=== PATIENT | female | born 1955 | race Caucasian/White ===

== ENCOUNTER → 2018-11-29 | Outpatient (CLI) | payer BC ==
[~2018-11-29] MED LIST: ADULT LOW DOSE81 MG PO; AMBIEN 10 MG TA10 MG PO; ASPIRIN325 PO; COZAAR 50 MG TA50 M1 PO; ENOXAPARIN30 MG/0.3 SUBQ; EPIPEN0.3 MG/0.3 IM; HYDROCODONE-AP1 EA10 PO; LYRICA100 MG PO; MOBIC7.5 MG PO; NORCO 5-325 TA1 EACH PO; NUCYNTA100 MG PO; NUCYNTA50 MG PO; PRILOSEC 20 MG20 MG PO; PRILOSEC40 MG PO; ST. JOHN'S WOR150 MG PO; SULINDAC 200MG200 M1 PO; ZETIA10 MG PO; [UNRECOGNIZED DRUG - OTHER] OP
== END ==
LOC: M.RAD 13:32
DX: M43.12 Spondylolisthesis, cervical region (principal); M50.33 Other cervical disc degeneration, cervicothoracic region

== ENCOUNTER → 2018-12-10 | Outpatient (CLI) | payer BC | LOC: M.MRI 08:05 | DX: M47.892 Other spondylosis, cervical region (principal); M48.02 Spinal stenosis, cervical region; M25.78 Osteophyte, vertebrae; M50.23 Other cervical disc displacement, cervicothoracic region ==

== ENCOUNTER → 2019-05-31 | Outpatient (CLI) | payer BC | LOC: M.NUC 05-25 16:55 | DX: M41.86 Other forms of scoliosis, lumbar region (principal); M12.88 Other specific arthropathies, not elsewhere classified, other specified site; M25.561 Pain in right knee; Z96.651 Presence of right artificial knee joint ==

== ENCOUNTER → 2019-06-06 | Outpatient (CLI) | payer BC | LOC: M.CT 09:04 | DX: I25.10 Atherosclerotic heart disease of native coronary artery without angina pectoris (principal); M47.812 Spondylosis without myelopathy or radiculopathy, cervical region; M47.814 Spondylosis without myelopathy or radiculopathy, thoracic region; I11.9 Hypertensive heart disease without heart failure; K44.9 Diaphragmatic hernia without obstruction or gangrene; K80.20 Calculus of gallbladder without cholecystitis without obstruction; Z88.8 Allergy status to other drugs, medicaments and biological substances; Z88.1 Allergy status to other antibiotic agents; Z91.013 Allergy to seafood ==

== ENCOUNTER → 2019-06-24 | Outpatient (CLI) | payer BC ==
[2019-06-24 13:24] LABS: HEMATOCRIT 37.9 % (37.0-47.0); HEMOGLOBIN 11.8 gm/dL (12.0-15.0); MCH 23.4 pg (26.0-34.0); MCHC 31.3 g/dL (28.0-37.0); MPV 6.3 fl. (7.2-11.1); RBC 5.05 mil/uL (4.20-5.00); RDW-CV 20.2 % (10.5-14.5); WBC 9.4 thou/uL (4.0-11.0)
[2019-06-24 13:36] LABS: ALBUMIN 4.1 g/dL (3.4-5.0); CALCIUM 9.3 mg/dL (8.5-10.1); CREATININE 0.8 mg/dL (0.6-1.3); POTASSIUM 4.4 mmol/L (3.5-5.1); TOTAL BILIRUBIN 0.3 mg/dL (<0.1-1.0); TOTAL PROTEIN 7.6 g/dL (6.4-8.2)
== END ==
LOC: M.LAB 13:00
PROVIDERS: Anesthesiology
DX: Z01.812 Encounter for preprocedural laboratory examination (principal)

== ENCOUNTER → 2019-09-22 | Outpatient (CLI) | payer BC, MEDICARE ==
[2019-09-22 09:31] VITALS: BP 133/88
== END ==
LOC: M.INFUS 08:55
DX: D50.9 Iron deficiency anemia, unspecified (principal); K44.9 Diaphragmatic hernia without obstruction or gangrene; R06.09 Other forms of dyspnea; I10 Essential (primary) hypertension; E78.5 Hyperlipidemia, unspecified; E66.9 Obesity, unspecified; F32.9 Major depressive disorder, single episode, unspecified; K21.9 Gastro-esophageal reflux disease without esophagitis; Z87.891 Personal history of nicotine dependence

== ENCOUNTER → 2019-09-25 | Outpatient (CLI) | payer BC, MEDICARE | LOC: M.INFUS 07:46 | DX: D50.9 Iron deficiency anemia, unspecified (principal); I10 Essential (primary) hypertension; K21.9 Gastro-esophageal reflux disease without esophagitis; E78.5 Hyperlipidemia, unspecified; E66.9 Obesity, unspecified; F32.9 Major depressive disorder, single episode, unspecified; Z87.891 Personal history of nicotine dependence ==

== ENCOUNTER → 2019-09-27 | Outpatient (CLI) | payer OTHER ==
--- NOTE | 2019-09-29 08:52 | PF ---
[address] [id number] PULMONARY FUNCTION REPORT Name: GABRIELLE VAN [facility]#: [id number] Admission: 09/27/19 Attend Phys: Du Conde MD, Discharge: Date of : 53 Report #: [id number] THIS REPORT FOR: //name// CC: Du Jin DATE OF SERVICE: 09/27/2019 PULMONARY FUNCTION TEST Spirometry was done. FEV1 was 1.51, which was 74% of predicted. FVC was normal. FEV1/FVC ratio was 70%. Mid flows were severely decreased. There was no significant change seen after inhaled bronchodilator. Lung volumes by plethysmography reveal a normal TLC and residual volume. Diffusion capacity was mildly diminished. IMPRESSION: Studies are consistent with a mild obstructive process. No significant change seen after inhaled bronchodilator. <ELECTRONICALLY SIGNED> By: Laila Montana MD 09/29/19 [id number] Montana MD /nt
== END ==
LOC: M.CT 09:00
DX: Z13.6 Encounter for screening for cardiovascular disorders (principal); E78.00 Pure hypercholesterolemia, unspecified; I25.10 Atherosclerotic heart disease of native coronary artery without angina pectoris

== ENCOUNTER → 2019-09-28 | Outpatient (CLI) | payer BC, MEDICARE ==
[2019-09-28 09:25] VITALS: BP 131/83
[2019-09-28 10:14] VITALS: BP 140/84
--- NOTE | 2019-09-28 12:21 | NUR ---
ARRIVED AMBULATORY MADE SELF COMFORTABLE IN RECLINER. DENEIS ADVERSE REACTION TO PRIOR INFUSION OF SAME. INFUSION COMPLETED AND TOELRATED WELL. DENEIS QUESTIONS OR NEEDS AT DISCHARGE.
== END ==
LOC: M.INFUS 05:39
DX: D50.9 Iron deficiency anemia, unspecified (principal); I10 Essential (primary) hypertension; E78.5 Hyperlipidemia, unspecified; E66.9 Obesity, unspecified; F32.9 Major depressive disorder, single episode, unspecified; K21.9 Gastro-esophageal reflux disease without esophagitis; Z87.891 Personal history of nicotine dependence

== ENCOUNTER → 2019-10-01 | Outpatient (CLI) | payer BC, MEDICARE | LOC: M.INFUS 07:53 | DX: D50.9 Iron deficiency anemia, unspecified (principal); I10 Essential (primary) hypertension; E78.5 Hyperlipidemia, unspecified; E66.9 Obesity, unspecified; F32.9 Major depressive disorder, single episode, unspecified; K21.9 Gastro-esophageal reflux disease without esophagitis; Z68.30 Body mass index [BMI] 30.0-30.9, adult; Z87.891 Personal history of nicotine dependence ==

== ENCOUNTER → 2019-10-04 | Outpatient (CLI) | payer BC, MEDICARE ==
[2019-10-04 09:10] VITALS: BP 135/97
== END ==
LOC: M.INFUS 04:47
DX: D50.9 Iron deficiency anemia, unspecified (principal); I10 Essential (primary) hypertension; E78.5 Hyperlipidemia, unspecified; E66.9 Obesity, unspecified; F32.9 Major depressive disorder, single episode, unspecified; K21.9 Gastro-esophageal reflux disease without esophagitis; Z87.891 Personal history of nicotine dependence; Z96.651 Presence of right artificial knee joint; Z96.642 Presence of left artificial hip joint